=== PATIENT | male | born 1940 | race Caucasian/White ===

== ENCOUNTER 2017-08-17 09:38 | Day surgery (SDC) | payer MEDICARE, OTHER ==
[2017-08-15 13:17] VITALS: BP 158/72
[2017-08-15 14:06] LABS: HEMATOCRIT 30.1 % (39.2-51.8); WHITE BLOOD COUNT 8.8 x10^3/uL (3.4-10)
[2017-08-15 14:33] LABS: ANISOCYTOSIS 1+
[2017-08-15 14:35] LABS: ACANTHOCYTES 1+; POIKILOCYTOSIS 1+
[2017-08-15 14:37] LABS: LARGE PLATELETS 1+; OVALOCYTES 1+; SCHISTOCYTES 1+
[~2017-08-17] VITALS: Ht 177.8 cm; Wt 83.9 kg
[~2017-08-17 09:38] MED LIST: ALLO300T PO; ATEN50TA41 PO; ATOR40TA78 PO; CALC0.25 PO; CALC500T PO; FLUT12AE INH; MAGN400T7 PO; MULT-224 PO; OMEP40CA6 PO; TIOT18CA INH; WARF2.5T73 PO; WARF5TAB7 PO
[2017-08-17] MEDS ORDERED: LIDOCAINE 1%, 2ML ONE (10:19)
[2017-08-17] MEDS ORDERED: LACTATED RINGERS 1,000 ML IV SCH (10:24)
[2017-08-17] MEDS ORDERED: PROPOFOL 10 MG/ML, 50ML ONE (11:34)
== END 2017-08-17 13:15 ==
LOC: OUT 09:38
PROVIDERS: ATTEND Specialist
DX: D12.3 Benign neoplasm of transverse colon (principal); K21.9 Gastro-esophageal reflux disease without esophagitis; K22.70 Barrett's esophagus without dysplasia; I10 Essential (primary) hypertension; D50.9 Iron deficiency anemia, unspecified; E78.5 Hyperlipidemia, unspecified; M10.9 Gout, unspecified; J44.9 Chronic obstructive pulmonary disease, unspecified; Z87.39 Personal history of other diseases of the musculoskeletal system and connective tissue; Z85.46 Personal history of malignant neoplasm of prostate
CPT/HCPCS: 36415; 43239; 45380; 85025; 88305; 93005; J2704